=== PATIENT | female | born 1940 | race Caucasian/White ===

== ENCOUNTER 2016-09-30 10:55 | Inpatient (IN) | payer MEDICARE, BC ==
[~2016-09-30 10:55] MED LIST: ALLEGRA ALLERG180 M1 PO; CARDIZEM CD180 M1 PO; CPAP; FLOVENT HFA1 PUF2 INH; HYZAAR 100-251 EACH PO; LASIX20 M1 PO; MOBIC7.5 M2 PO; NASACORT10.8 M1; NEURONTIN100 M1 PO; REFRESH PLUS1 EACH EACH EYE; ULTRAM50 M1 PO
[2016-10-01 06:22] LABS: HCT-HEMATOCRIT 33.7 % (34.0-49.0); HGB-HEMOGLOBIN 11.5 gm/dl (12.0-15.5); IMMATURE GRANULOCYTES ABSOLUTE 0.03 tho/cmm (0-0.03); IMMATURE GRANULOCYTES PERCENT 0.2 % (0-0.3); LYMPH % 4.6 % (20-45); LYMPH ABSOLUTE COUNT 0.6 tho/cmm (0.8-4.5); MCH (MEAN CORPUSCULAR HGB) 29.6 pg (28.0-32.0); MCHC MEAN CORPUSCULAR HGB CONC 34.1 % (32.0-36.0); MCV (MEAN CELL VOLUME) 86.9 fl (82.0-96.0); MEAN PLATELET VOLUME 10.1 cmc (9.4-12.4); MONO % 5.3 % (0-12); MONOCYTE ABSOLUTE COUNT 0.7 tho/cmm (0.0-1.2); NEUTROPHIL ABSOLUTE COUNT 11.5 tho/cmm (1.6-8.0); NEUTROPHIL-AUTOMATED 11.5 tho/cmm (1.6-8.0); NEUTROPHILS % 89.9 % (40-80); PLATELET COUNT 221 tho/cmm (150-450); RED BLOOD COUNT 3.88 mil/cmm (4.00-5.20); RED CELL DISTRIBUTION WIDTH 12.9 % (12.4-16.4); WHITE BLOOD COUNT 12.7 tho/cmm (4.0-10.0)
[2016-10-01 06:32] LABS: ANION GAP 12 mmol/L (0-20); CALCIUM 8.7 mg/dl (8.5-10.5); CARBON DIOXIDE-VENOUS 28 mmol/L (22-32); CHLORIDE 103 mmol/l (96-110); POTASSIUM 3.8 mmol/L (3.7-5.1); SODIUM 139 mmol/L (135-145)
[2016-10-01 06:42] LABS: ALB/GLOB RATIO 0.9 (0.8-2.0); ALBUMIN 2.8 g/dl (3.5-5.0); ALKALINE PHOSPHATASE 59 U/L (33-138); ALT/SGPT 29 U/L (12-78); AST/SGOT 43 U/L (10-40); BILIRUBIN,TOTAL 0.4 mg/dl (0-1.5); BLOOD UREA NITROGEN 17 mg/dl (6-24); CREATININE 0.94 mg/dl (0.50-1.10); GLUCOSE 133 mg/dL (70-110); eGFR VALUE FOR BLACK 68 mL/Min
[2016-10-01] MEDS ORDERED: ULTRAM50 M1 PO (13:17)
[2016-10-01] MEDS ORDERED: ASPIRIN81 M1 PO (13:18)
[2016-10-01] MEDS ORDERED: TYLENOL325 M2 PO (13:19)
[2016-10-01] MEDS ORDERED: SENOKOT-S TABL1 EACH PO (13:22)
[2016-10-01] MEDS ORDERED: TYLENOL WITH C1 EACH PO (13:23)
== END 2016-10-01 18:00 | DRG 470 ==
LOC: SHSC 10:55 → ORE 12:55 → PACU 14:52 → 5EA 16:10
PROVIDERS: Internal Medicine; ADMIT Orthopaedic Surgery Foot and Ankle Surgery
PROC: 0SR902A Replacement of Right Hip Joint with Metal on Polyethylene Synthetic Substitute, Uncemented, Open Approach (ICD-10-PCS; principal; 2016-09-30)
PROC: 3E0F7GC Introduction of Other Therapeutic Substance into Respiratory Tract, Via Natural or Artificial Opening (ICD-10-PCS; principal; 2016-09-30)
DX: M16.11 Unilateral primary osteoarthritis, right hip (principal); E11.9 Type 2 diabetes mellitus without complications; I44.7 Left bundle-branch block, unspecified; I10 Essential (primary) hypertension; E78.5 Hyperlipidemia, unspecified; G47.33 Obstructive sleep apnea (adult) (pediatric); J45.909 Unspecified asthma, uncomplicated
CPT/HCPCS: C1776; J0171; J0690; J1885; J2270; J2795

== ENCOUNTER 2016-10-03 12:17 | Emergency (ER) | payer MEDICARE, BC ==
[~2016-10-03 12:17] MED LIST changes: +ASPIRIN81 M1 PO; +SENOKOT-S TABL1 EACH PO; +TYLENOL WITH C1 EACH PO; +TYLENOL325 M2 PO
== END 2016-10-03 13:32 ==
LOC: EDMED 12:17
DX: Z47.1 Aftercare following joint replacement surgery (principal); I10 Essential (primary) hypertension; J45.909 Unspecified asthma, uncomplicated; G47.30 Sleep apnea, unspecified; Z79.82 Long term (current) use of aspirin; Z79.899 Other long term (current) drug therapy